=== PATIENT | male | born 1945 | race Caucasian/White ===

== ENCOUNTER 2017-03-22 01:34 | Inpatient (IN) | payer MEDICARE, OTHER ==
[2017-03-22] VITALS (25 sets, daily range): BP systolic 122–149; BP diastolic 56–91; PULSE 62–79; RESP 16–22; TEMP 97.3–99.7; O2SAT 68–97
[~2017-03-22] VITALS: Ht 180.3 cm; Wt 102.7 kg
[~2017-03-22 01:34] MED LIST: ADVI200C9 PO; HYDR-3533 PO
[2017-03-22] MEDS ORDERED: DEXAMETHASONE SOD PHOS 4 MG/ML VIAL IV PUSH ONE (02:15)
[2017-03-22] MEDS ORDERED: CLINDAMYCIN INJ 600 MG in SODIUM CHLORIDE 0.9% INJ 100 ML IV ONE (02:15)
[2017-03-22] MEDS ORDERED: CLINDAMYCIN INJ 600 MG in SODIUM CHLORIDE 0.9% INJ 46 ML IV ONE (02:30)
--- NOTE | 2017-03-22 02:33 | RADRPT ---
EXAM DATE/TIME: 03/22/2017 02:10 [facility] COMPARISON: No previous studies available for comparison. INDICATIONS : Sore throat and cough. MEDICAL HISTORY : None. SURGICAL HISTORY : None. ENCOUNTER: Initial ACUITY: 2 days PAIN SCORE: 5/10 LOCATION: Bilateral neck. FINDINGS: Two view examination of the soft tissues of the neck demonstrates the hypopharyngeal airway to have a grossly normal configuration. The trachea is midline. No radiopaque foreign bodies are seen. CONCLUSION: Normal examination. Josias Bradford MD on March 22, 2017 at 2:31 Board Certified Radiologist. This report was verified electronically.
[2017-03-22 03:12] LABS: AUTOMATED NEUTROPHIL # 11.5 TH/MM3 (1.8-7.7); BASOPHIL # 0.1 TH/MM3 (0-0.2); BASOPHIL % 0.4 % (0.0-2.0); EOSINOPHIL # 0.1 TH/MM3 (0-0.4); EOSINOPHIL % 0.6 % (0.0-4.0); HEMATOCRIT 47.1 % (39.0-51.0); LYMPH % 16.6 % (9.0-44.0); LYMPHOCYTE # 2.6 TH/MM3 (1.0-4.8); MEAN CELL VOLUME 90.7 FL (80.0-100.0); MEAN CORPUSCULAR HEMOGLOBIN 30.5 PG (27.0-34.0); MEAN CORPUSCULAR HGB CONC 33.7 % (32.0-36.0); MONO % 8.5 % (0.0-8.0); NEUT % 73.9 % (16.0-70.0); PLATELET COUNT 212 TH/MM3 (150-450); RED BLOOD COUNT 5.19 MIL/MM3 (4.50-5.90); RED CELL DISTRIBUTION WIDTH 12.5 % (11.6-17.2); WHITE BLOOD COUNT 15.6 TH/MM3 (4.0-11.0)
[2017-03-22 03:26] LABS: HEMO FLAGS DIFF FINAL
[2017-03-22] MEDS ORDERED: RESP: IPRATROPIUM 0.5 MG/2.5 ML NEB NEB ONE (03:30)
[2017-03-22] MEDS ORDERED: diphenhydrAMINE HCL 50 MG/ML VIAL IV PUSH ONE (03:30)
[2017-03-22 03:36] LABS: CHLORIDE 102 MEQ/L (98-107); POTASSIUM 4.3 MEQ/L (3.5-5.1); SODIUM (NA) 135 MEQ/L (136-145)
[2017-03-22 03:40] LABS: ANION GAP 11 MEQ/L (5-15); BICARBONATE 22.2 MEQ/L (21.0-32.0); BLOOD UREA NITROGEN 14 MG/DL (7-18)
[2017-03-22 03:43] LABS: ALT (GPT) 29 U/L (12-78); AST (GOT) 21 U/L (15-37); GLOMERULAR FILTRATION RATE 84 ML/MIN (>89)
--- NOTE | 2017-03-22 03:44 | PD ---
HPI Chief Complaint: ENT Complaint Time Seen by Provider: 01:56 Travel History International Travel<30 days: No Contact w/Intl Traveler<30days: No Traveled to known affect area: No History of Present Illness HPI Patient is a 71-year-old male who is coming in saying that for the last few days he's had a severe sore throat . Tonight it started to get to the point where he felt he could not lie down without his throat closing. As if he couldn 't breathe. He's had congestion and upper respiratory like symptoms now progressively worse . He did not take anything to help with the pain or the sensation in his throat. He has no past medical history . He has no diabetes he said he doesn't even ever take even a pill. In the ER his voice sounds slightly hoarse otherwise he does not seem to be in respiratory distress. He is not drooling. He can handle his own secretions. Just the mild hoarseness to his voice. He has not seen another doctor for this complaint PFSH Past Medical History Diminished Hearing: No Past Surgical History Other Surgery: Yes (left mastoid removal) Social History Alcohol Use: Yes (beer couple times week) Tobacco Use: Yes (cigars) Substance Use: No Allergies-Medications (Allergen,Severity, Reaction): Coded Allergies: No Known Allergies (Unverified Allergy, Unknown, 03/22/17) Reported Meds & Prescriptions Reported Meds & Active Scripts Active Review of Systems Except as stated in HPI: all other systems reviewed are Neg HENT: Positive: Sore Throat, Other (feels as if his throat is closing made worse by lying flat voice hoarseness) Physical Exam Narrative GENERAL: non toxic not in distress but haorseness to voice noted SKIN: Warm and dry. HEAD: Atraumatic. Normocephalic. EYES: Pupils equal and round. No scleral icterus. No injection or drainage. ENT: No nasal bleeding or discharge. Mucous membranes pink and moist. NECK: Trachea midline. No JVD. Auscultation of nape of neck there is no stridor auscultated CARDIOVASCULAR: Regular rate and rhythm. RESPIRATORY: No accessory muscle use. Clear to auscultation. Breath sounds equal bilaterally. Lungs are clear to auscultation in all suárez upper and anterior as well as posterior upper no stridor auscultated GASTROINTESTINAL: Abdomen soft, non-tender, nondistended. Hepatic and splenic margins not palpable. MUSCULOSKELETAL: Extremities without clubbing, cyanosis, or edema. No obvious deformities. NEUROLOGICAL: Awake and alert. No obvious cranial nerve deficits. Motor grossly within normal limits. Five out of 5 muscle strength in the arms and legs. Normal speech. PSYCHIATRIC: Appropriate mood and affect; insight and judgment normal. Data Data Last Documented VS Vital Signs Date Time Temp Pulse Resp B/P (MAP) Pulse Ox O2 Delivery O2 Flow Rate FiO2 03/22/17 04:57 98.2 67 20 140/81 (100) 97 03/22/17 04:00 Room Air Orders Orders Dexamethasone Inj (Decadron Inj) (03/22/17 02:15) Clindamycin Inj (Cleocin Inj) (03/22/17 02:15) Clindamycin Inj (Cleocin Inj) (03/22/17 02:30) Soft Tissue Neck (03/22/17 ) Group A Rapid Strep Screen (03/22/17 02:34) Complete Blood Count With Diff (03/22/17 02:44) Comprehensive Metabolic Panel (03/22/17 02:44) Ct Soft Tiss Neck W Iv Cont (03/22/17 ) Ipratropium Neb (Atrovent Neb) (03/22/17 03:30) Diphenhydramine Inj (Benadryl Inj) (03/22/17 03:30) Strep Culture (Group A) (03/22/17 02:45) Iohexol 350 Inj (Omnipaque 350 Inj) (03/22/17 04:18) Dext 5%-Nacl 0.45% 1000 Ml Inj (D5w-1/2 (03/22/17 05:00) Admit To Inpatient (03/22/17 ) Vital Signs (Adult) Q4H (03/22/17 05:01) Activity Oob Ad Lo (03/22/17 05:01) Bedside Glucose ANGELITA.CSUGAR (03/22/17 05:01) Diet Clear Liquid (03/22/17 Breakfast) Sodium Chloride 0.9% Flush (Ns Flush) (03/22/17 05:15) Sodium Chloride 0.9% Flush (Ns Flush) (03/22/17 09:00) Acetaminophen (Tylenol) (03/22/17 05:15) Ondansetron Inj (Zofran Inj) (03/22/17 05:15) Basic Metabolic Panel (Bmp) (03/23/17 06:00) Complete Blood Count With Diff (03/23/17 06:00) Scd Bilateral/Knee High ANGELITA.BID (03/22/17 05:01) Naloxone Inj (Narcan Inj) (03/22/17 05:15) Docusate Sodium-Senna (Delfina-Colace) (03/22/17 09:00) Magnesium Hydroxide Liq (Milk Of Magnesi (03/22/17 05:15) Sennosides (Senokot) (03/22/17 05:15) Bisacodyl Supp (Dulcolax Supp) (03/22/17 05:15) Lactulose Liq (Lactulose Liq) (03/22/17 05:15) Inpatient Certification (03/22/17 ) Consult Ent (03/22/17 ) Dexamethasone Inj (Decadron Inj) (03/22/17 08:00) Labs Laboratory Tests Test 03/22/17 02:45 03/22/17 03:20 White Blood Count 15.6 TH/MM3 Red Blood Count 5.19 MIL/MM3 Hemoglobin 15.9 GM/DL Hematocrit 47.1 % Mean Corpuscular Volume 90.7 FL Mean Corpuscular Hemoglobin 30.5 PG Mean Corpuscular Hemoglobin Concent 33.7 % Red Cell Distribution Width 12.5 % Platelet Count 212 TH/MM3 Mean Platelet Volume 9.3 FL Neutrophils (%) (Auto) 73.9 % Lymphocytes (%) (Auto) 16.6 % Monocytes (%) (Auto) 8.5 % Eosinophils (%) (Auto) 0.6 % Basophils (%) (Auto) 0.4 % Neutrophils # (Auto) 11.5 TH/MM3 Lymphocytes # (Auto) 2.6 TH/MM3 Monocytes # (Auto) 1.3 TH/MM3 Eosinophils # (Auto) 0.1 TH/MM3 Basophils # (Auto) 0.1 TH/MM3 CBC Comment DIFF FINAL Differential Comment Blood Urea Nitrogen 14 MG/DL Creatinine 0.90 MG/DL Random Glucose 121 MG/DL Total Protein 7.4 GM/DL Albumin 3.7 GM/DL Calcium Level 8.1 MG/DL Alkaline Phosphatase 51 U/L Aspartate Amino Transf (AST/SGOT) 21 U/L Alanine Aminotransferase (ALT/SGPT) 29 U/L Total Bilirubin 1.1 MG/DL Sodium Level 135 MEQ/L Potassium Level 4.3 MEQ/L Chloride Level 102 MEQ/L Carbon Dioxide Level 22.2 MEQ/L Anion Gap 11 MEQ/L Estimat Glomerular Filtration Rate 84 ML/MIN MDM Medical Decision Making Medical Screen Exam Complete: Yes Emergency Medical Condition: Yes Differential Diagnosis Strep pharyngitis versus bacterial tracheitis versus epiglottitis versus thrush or candidal pharyngitis versus foreign body Narrative Course Patient has a hoarse throat and difficulty breathing. CAT scan shows there is some swelling to the aryepiglottic fold. Decadron clindamycin Atrovent neb given with moderate improvement Benadryl IV given moderate improvement needs to be admitted for close observation of his airway I transfer him to the intermediate ICU at the [facility] Narrative Critical care time spent Reassessing his airway giving him medications to prevent any occlusion of his airway. Treatment included clindamycin. Decadron. Benadryl. Atrovent. Reassessing airway over 2 hours. Reviewing his airway CAT scan ordered and reviewed. . Admit to the ICU intermediate step down at the [facility] in [facility]. Critical care care time is 90 minutes Diagnosis Primary Impression: Throat swelling Admitting Information Admitting Physician Requests: Rory Keith MD Mar 22, 2017 03:44
[2017-03-22 03:45] LABS: TOTAL BILIRUBIN ADULT 1.1 MG/DL (0.2-1.0)
[2017-03-22 03:46] LABS: ALKALINE PHOSPHATASE 51 U/L (45-117)
[2017-03-22] MEDS ORDERED: IOHEXOL 350 MG/ML 10 ML VIAL (for RAD DIAG) IVCONTRAST ONE (04:18)
--- NOTE | 2017-03-22 04:26 | RADRPT ---
EXAM DATE/TIME: 03/22/2017 04:01 [facility] COMPARISON: No previous studies available for comparison. INDICATIONS : Neck pain. Swollen throat. IV CONTRAST: 100 cc Omnipaque 350 (iohexol) IV RADIATION DOSE: 15.16 CTDIvol (mGy) MEDICAL HISTORY : None SURGICAL HISTORY : left mastoid removed. ENCOUNTER: Initial ACUITY: 2 days PAIN SCALE: 8/10 LOCATION: Bilateral neck TECHNIQUE: Volumetric scanning of the neck was performed. Using automated exposure control and adjustment of th e mA and/or kV according to patient size, radiation dose was kept as low as reasonably achievable to obtain optimal diagnostic quality images. DICOM format image data is available electronically for r eview and comparison. FINDINGS: NASOPHARYNX: The nasopharyngeal airway has a normal configuration. No mucosal thickening or mass is seen. OROPHARYNX: At the base of the tongue there is also a rounded hypodense structure measuring 1.4 x 1.2 cm across.. The tonsillar pillars are intact. The prevertebral soft tissues are not thickened. LARYNX: The supraglottic, glottic, and infraglottic structures are intact. The left-sided aryepiglottic fold is thicker than the right. Non-emergent ENT referral is recommended PARAPHARYNGEAL: The parapharyngeal space is intact. SALIVARY GLANDS: The parotid and submandibular glands are intact. LYMPH NODES: No enlarged or necrotic-appearing nodes. Numerous small reactive lymph nodes are noted bilaterally THYROID: Homogeneous enhancement without evidence of nodule. BONES: Unremarkable. CONCLUSION: Definite thickening of the left aryepiglottic fold compared to the right. Questionable hypodense mass in the base of the tongue just above the hyoid bone. ENT referral with direct endoscopy is recommend ed on a nonemergent basis. Josias Bradford MD on March 22, 2017 at 4:22 Board Certified Radiologist. This report was verified electronically.
[2017-03-22] MEDS: DEXT 5%-NACL 0.45% 1000 ML INJ 1,000 ML IV SCH ×2 (05:11→16:55)
[2017-03-22] MEDS ORDERED: NALOXONE HCL 0.4 MG/ML AMP IV PUSH PRN (05:15)
[2017-03-22] MEDS ORDERED: BISACODYL 10 MG SUPP RECTAL PRN (05:15)
[2017-03-22] MEDS ORDERED: ONDANSETRON HCL 4 MG/2 ML VIAL IVP PRN (05:15)
[2017-03-22] MEDS ORDERED: LACTULOSE SYRUP 20 GM/30 ML CUP PO PRN (05:15)
[2017-03-22] MEDS ORDERED: SODIUM CHLORIDE 0.9% FLUSH 10 ML FLUSH IV FLUSH PRN (05:15)
[2017-03-22] MEDS ORDERED: SENNOSIDES 8.6 MG TAB PO PRN (05:15)
[2017-03-22] MEDS ORDERED: ACETAMINOPHEN 325 MG TAB PO PRN (05:15)
[2017-03-22] MEDS ORDERED: MAGNESIUM HYDROXIDE SUSP 30 ML CUP PO PRN (05:15)
[2017-03-22] MEDS: DEXAMETHASONE SOD PHOS 4 MG/ML VIAL IV PUSH SCH ×3 (08:47→23:49)
[2017-03-22] MEDS: SODIUM CHLORIDE 0.9% FLUSH 10 ML FLUSH IV FLUSH SCH ×2 (08:47→21:00)
[2017-03-22] MEDS: DOCUSATE SODIUM 50 MG/SENNA 8.6 MG TAB PO SCH ×2 (08:47→22:16)
--- NOTE | 2017-03-22 11:37 | PD.CONS ---
History of Present Illness Service ENT Consult Requested By ED Reason for Consult Throat pain. Primary Care Physician Usman Zapata MD Diagnoses: History of Present Illness 71 year old male, previous good health, sevral days sore throat. Developed hoarseness, upper airway tightness, odynophagia. Presented to ED with 15 K white count. Admitted on steroids and antibiotics. CT suggests possible inflammatory mass base of tongue and supraglottis. Review of Systems Ears, nose, mouth, throat: COMPLAINS OF: Throat pain, Hoarseness, Odynophagia, DENIES: Nasal discharge, Oral lesions Past Family Social History Allergies: Coded Allergies: No Known Allergies (Unverified Allergy, Unknown, 03/22/17) Past Medical History Non-contributory for ENT. Physical Exam Vital Signs Vital Signs Date Time Temp Pulse Resp B/P (MAP) Pulse Ox O2 Delivery O2 Flow Rate FiO2 03/22/17 09:00 66 03/22/17 08:00 68 03/22/17 07:00 98.7 68 20 03/22/17 07:00 68 03/22/17 06:45 67 03/22/17 06:44 98.0 67 18 149/87 (107) 95 03/22/17 06:01 67 20 133/89 (104) 97 03/22/17 04:57 98.2 67 20 140/81 (100) 97 03/22/17 04:00 70 20 134/80 (98) 94 Room Air 03/22/17 03:16 72 20 145/84 (104) 93 03/22/17 02:09 73 20 03/22/17 02:05 99.7 71 20 146/86 (106) 92 03/22/17 01:38 98.5 79 22 139/91 (107) 97 Physical Exam GENERAL: This is a well-nourished, well-developed patient, in no apparent distress. SKIN: No rashes, ecchymoses or lesions. Cool and dry. HEAD: Atraumatic. Normocephalic. No temporal or scalp tenderness. EYES: Pupils equal round and reactive. Extraocular motions intact. No scleral icterus. No injection or drainage. ENT: Nose without bleeding, purulent drainage or septal hematoma. Throat without erythema, tonsillar hypertrophy or exudate. Uvula midline. Airway patent. NECK: Trachea midline. No JVD or lymphadenopathy. Supple, nontender, no meningeal signs. Fiberoptic laryngoscopy, trans-oral: no base of tongue lesion seen. Very mild laryngeal edema. NEUROLOGICAL: Awake and alert. Normal speech. Laboratory Laboratory Tests Test 03/22/17 02:45 03/22/17 03:20 White Blood Count 15.6 Red Blood Count 5.19 Hemoglobin 15.9 Hematocrit 47.1 Mean Corpuscular Volume 90.7 Mean Corpuscular Hemoglobin 30.5 Mean Corpuscular Hemoglobin Concent 33.7 Red Cell Distribution Width 12.5 Platelet Count 212 Mean Platelet Volume 9.3 Neutrophils (%) (Auto) 73.9 Lymphocytes (%) (Auto) 16.6 Monocytes (%) (Auto) 8.5 Eosinophils (%) (Auto) 0.6 Basophils (%) (Auto) 0.4 Neutrophils # (Auto) 11.5 Lymphocytes # (Auto) 2.6 Monocytes # (Auto) 1.3 Eosinophils # (Auto) 0.1 Basophils # (Auto) 0.1 CBC Comment DIFF FINAL Differential Comment Blood Urea Nitrogen 14 Creatinine 0.90 Random Glucose 121 Total Protein 7.4 Albumin 3.7 Calcium Level 8.1 Alkaline Phosphatase 51 Aspartate Amino Transf (AST/SGOT) 21 Alanine Aminotransferase (ALT/SGPT) 29 Total Bilirubin 1.1 Sodium Level 135 Potassium Level 4.3 Chloride Level 102 Carbon Dioxide Level 22.2 Anion Gap 11 Estimat Glomerular Filtration Rate 84 Date/Time Source Procedure Growth Status 03/22/17 02:45 Throat Group A Streptococcus Screen Pending Received Result Diagram: 03/22/17 0245 03/22/17 0320 Assessment and Plan Assessment and Plan 71 year old man was clinically well. Several days sore throat with elevated WBC. Most consistent with supraglottitis and lingual tonsillitis. Maintain IV Clindamycin and Decadron today. If improves D/C home to office follow up. Will re-check in the a.m. OK to eat. Barrington Pruitt MD Mar 22, 2017 11:37
--- NOTE | 2017-03-22 12:32 | HHI.HP ---
[facility] Usman Zapata MD Admission Diagnosis swollen throat aryepiglottic fold Diagnoses: Chief Complaint: Short of breath with subjective fevers and chills Travel History International Travel<30 Days: No Contact w/Intl Traveler <30 Da: No Traveled to Known Affected Are: No History of Present Illness This patient 71-year-old gentleman who was out playing golf yesterday and noted that he increase and he felt tightness in his throat. The tightness was so severe overnight that he drove himself to the emergency room. In the emergency room did have some imaging which showed epiglottal thickening and a density at the base of the tongue. Patient also had a white cell count and some increased hoarseness. He reports being exposed by close family member who had a viral syndrome with cough and he thought it was bronchitis. He himself reports subjective fevers and chills. He is admitted to the hospital for further evaluation and treatment. He was started on IV antibiotics as well as IV steroids and has felt better. Review of Systems Constitutional: COMPLAINS OF: Fatigue, Chills, Night Sweats Endocrine: DENIES: Heat/cold intolerance, Polydipsia, Polyuria, Polyphagia Ears, nose, mouth, throat: DENIES: Tinnitus, Hearing loss, Vertigo, Nasal discharge, Oral lesions, Throat pain, Hoarseness, Ear Pain, Running Nose, Epistaxis, Sinus Pain, Toothache, Odynophagia Respiratory: DENIES: Apneas, Cough, Snoring, Wheezing, Hemoptysis, Sputum production, Shortness of breath Cardiovascular: DENIES: Chest pain, Palpitations, Syncope, Dyspnea on Exertion , PND, Lower Extremity Edema, Orthopnea, Claudication Gastrointestinal: DENIES: Abdominal pain, Black stools, Bloody stools, Constipation, Diarrhea, Nausea, Vomiting, Difficulty Swallowing, Anorexia Genitourinary: DENIES: Sexual dysfunction, Urinary frequency, Urinary incontinence, Urgency, Hematuria, Dysuria, Nocturia, Penile Discharge, Testicular Pain, Testicular Swelling Musculoskeletal: DENIES: Joint pain, Muscle aches, Stiffness, Joint Swelling, Back pain, Neck pain Integumentary: DENIES: Abnormal pigmentation, Nail changes, Pruritus, Rash Hematologic/lymphatic: DENIES: Bruising, Lymphadenopathy Immunologic/allergic: DENIES: Eczema, Urticaria Neurologic: DENIES: Abnormal gait, Headache, Localized weakness, Paresthesias, Seizures, Speech Problems, Tremor, Poor Balance Psychiatric: DENIES: Anxiety, Confusion, Mood changes, Depression, Hallucinations, Agitation, Suicidal Ideation, Homicidal Ideation, Delusions Except as stated in HPI: all other systems reviewed are Neg Past Family Social History Past Medical History Denies Past Surgical History right knee Multiple colon polypectomies Reported Medications None Allergies: Coded Allergies: No Known Allergies (Unverified Allergy, Unknown, 03/22/17) Active Ordered Medications Reviewed in the EMR Family History Mother from esophageal cancer at 83, father at 76 from a ruptured abdominal aneurysm Social History Exposed to viral syndrome with family member in close quarters Tobacco for 10 years and quit in August 2016 Alcohol daily Plays golf daily Physical Exam Vital Signs Vital Signs Date Time Temp Pulse Resp B/P (MAP) Pulse Ox O2 Delivery O2 Flow Rate FiO2 03/22/17 09:00 66 03/22/17 08:00 68 03/22/17 07:00 98.7 68 20 03/22/17 07:00 68 03/22/17 06:45 67 03/22/17 06:44 98.0 67 18 149/87 (107) 95 03/22/17 06:01 67 20 133/89 (104) 97 03/22/17 04:57 98.2 67 20 140/81 (100) 97 03/22/17 04:00 70 20 134/80 (98) 94 Room Air 03/22/17 03:16 72 20 145/84 (104) 93 03/22/17 02:09 73 20 03/22/17 02:05 99.7 71 20 146/86 (106) 92 03/22/17 01:38 98.5 79 22 139/91 (107) 97 Physical Exam GENERAL: This is a well-nourished, well-developed patient, in no apparent distress. SKIN: No rashes, ecchymoses or lesions. Cool and dry. HEAD: Atraumatic. Normocephalic. No temporal or scalp tenderness. EYES: Pupils equal round and reactive. Extraocular motions intact. No scleral icterus. No injection or drainage. ENT: Nose without bleeding, purulent drainage or septal hematoma. Throat without erythema, tonsillar hypertrophy or exudate. Uvula midline. Airway patent. NECK: Trachea midline. No JVD or lymphadenopathy. Supple, nontender, no meningeal signs. CARDIOVASCULAR: Regular rate and rhythm without murmurs, gallops, or rubs. RESPIRATORY: Clear to auscultation. Breath sounds equal bilaterally. No wheezes , rales, or rhonchi. GASTROINTESTINAL: Abdomen soft, non-tender, nondistended. No hepato-splenomegaly , or palpable masses. No guarding. MUSCULOSKELETAL: Extremities without clubbing, cyanosis, or edema. No joint tenderness, effusion, or edema noted. No calf tenderness. Negative Homans sign bilaterally. NEUROLOGICAL: Awake and alert. Cranial nerves II through XII intact. Motor and sensory grossly within normal limits. Five out of 5 muscle strength in all muscle groups. Normal speech. Laboratory Laboratory Tests Test 03/22/17 02:45 03/22/17 03:20 White Blood Count 15.6 Red Blood Count 5.19 Hemoglobin 15.9 Hematocrit 47.1 Mean Corpuscular Volume 90.7 Mean Corpuscular Hemoglobin 30.5 Mean Corpuscular Hemoglobin Concent 33.7 Red Cell Distribution Width 12.5 Platelet Count 212 Mean Platelet Volume 9.3 Neutrophils (%) (Auto) 73.9 Lymphocytes (%) (Auto) 16.6 Monocytes (%) (Auto) 8.5 Eosinophils (%) (Auto) 0.6 Basophils (%) (Auto) 0.4 Neutrophils # (Auto) 11.5 Lymphocytes # (Auto) 2.6 Monocytes # (Auto) 1.3 Eosinophils # (Auto) 0.1 Basophils # (Auto) 0.1 CBC Comment DIFF FINAL Differential Comment Blood Urea Nitrogen 14 Creatinine 0.90 Random Glucose 121 Total Protein 7.4 Albumin 3.7 Calcium Level 8.1 Alkaline Phosphatase 51 Aspartate Amino Transf (AST/SGOT) 21 Alanine Aminotransferase (ALT/SGPT) 29 Total Bilirubin 1.1 Sodium Level 135 Potassium Level 4.3 Chloride Level 102 Carbon Dioxide Level 22.2 Anion Gap 11 Estimat Glomerular Filtration Rate 84 Date/Time Source Procedure Growth Status 03/22/17 02:45 Throat Group A Streptococcus Screen Pending Received Result Diagram: 03/22/17 0245 03/22/17 0320 Imaging Last Impressions Soft Tissue Neck X-Ray 03/22/17 0000 Signed Impressions: Service Date/Time: Wednesday, March 22, 2017 02:10 - CONCLUSION: Normal examination. Josias Bradford MD Neck CT 03/22/17 0000 Signed Impressions: Service Date/Time: Wednesday, March 22, 2017 04:01 - CONCLUSION: Definite thickening of the left aryepiglottic fold compared to the right. Questionable hypodense mass in the base of the tongue just above the hyoid bone. ENT referral with direct endoscopy is recommended on a nonemergent basis. MD Dinorah Fatima VTE Risk Assessment Caprini VTE Risk Assessment: Mod/High Risk (score >= 2) Caprini Risk Assessment Model Point Value = 1 Point Value = 2 Point Value = 3 Point Value = 5 Age 41-60 Minor surgery BMI > 25 kg/m2 Swollen legs Varicose veins or History of unexplained or recurrent spontaneous Oral contraceptives or hormone replacement Sepsis (< 1 month) Serious lung disease, including pneumonia (< 1 month) Abnormal pulmonary function Acute myocardial infarction Congestive heart failure (< 1 month) History of inflammatory bowel disease Medical patient at bed rest Age 61-74 Arthroscopic surgery Major open surgery (> 45 min) Laparoscopic surgery (> 45 min) Malignancy Confined to bed (> 72 hours) Immobilizing plaster cast Central venous access Age >= 75 History of VTE Family history of VTE Factor V Leiden Prothrombin [id number] Lupus anticoagulant Anticardiolipin antibodies Elevated serum homocysteine Heparin-induced thrombocytopenia Other congenital or acquired thrombophilia Stroke (< 1 month) Elective arthroplasty Hip, pelvis, or leg fracture Acute spinal cord injury (< 1 month) Prophylaxis Regimen Total Risk Factor Score Risk Level Prophylaxis Regimen 0-1 Low Early ambulation 2 Moderate Order ONE of the following: *Sequential Compression Device (SCD) *Heparin 5000 units SQ BID 3-4 Higher Order ONE of the following medications: *Heparin 5000 units SQ TID *Enoxaparin/Lovenox 40 mg SQ daily (WT < 150 kg, CrCl > 30 mL/min) *Enoxaparin/Lovenox 30 mg SQ daily (WT < 150 kg, CrCl > 10-29 mL/min) *Enoxaparin/Lovenox 30 mg SQ BID (WT < 150 kg, CrCl > 30 mL/min) AND/OR *Sequential Compression Device (SCD) 5 or more Highest Order ONE of the following medications: *Heparin 5000 units SQ TID (Preferred with Epidurals) *Enoxaparin/Lovenox 40 mg SQ daily (WT < 150 kg, CrCl > 30 mL/min) *Enoxaparin/Lovenox 30 mg SQ daily (WT < 150 kg, CrCl > 10-29 mL/min) *Enoxaparin/Lovenox 30 mg SQ BID (WT < 150 kg, CrCl > 30 mL/min) AND *Sequential Compression Device (SCD) Assessment and Plan Problem List: (1) Throat swelling ICD Code: R22.1 - Localized swelling, mass and lump, neck Status: Acute Plan: Likely infectious and inflammatory in nature We'll continue IV antibiotics and IV steroids and continue supportive care Advance diet ENT eval appreciated Code Status Full code Physician Certification 2 Midnight Certification Type: Admission for Inpatient Services Order for Inpatient Services The services are ordered in accordance with Medicare regulations or non- Medicare payer requirements, as applicable. In the case of services not specified as inpatient-only, they are appropriately provided as inpatient services in accordance with the 2-midnight benchmark. Estimated LOS (days): 2 2 days is the estimated time the patient will need to remain in the hospital, assuming treatment plan goals are met and no additional complications. Post-Hospital Plan: Alecia Padron MD Mar 22, 2017 12:32
[2017-03-23] VITALS (13 sets, daily range): BP systolic 104–144; BP diastolic 71–90; PULSE 50–72; RESP 16–20; TEMP 97.9–98; O2SAT 97–100
--- NOTE | 2017-03-23 06:42 | HHI.PR ---
Subjective Remarks Feels much better. Pain nearly resolved. Objective Oral cavity clear. No adenopathy. Vital Signs Date Time Temp Pulse Resp B/P (MAP) Pulse Ox O2 Delivery O2 Flow Rate FiO2 03/23/17 06:00 59 03/23/17 05:00 72 03/23/17 04:00 59 03/23/17 03:00 98.0 65 16 144/71 (95) 97 03/23/17 03:00 50 03/23/17 02:00 54 03/23/17 01:00 60 03/22/17 23:00 97.7 62 16 122/75 (91) 93 03/22/17 23:00 66 03/22/17 22:00 76 03/22/17 21:00 66 03/22/17 20:00 66 03/22/17 19:00 97.3 70 18 131/56 (81) 93 03/22/17 19:00 64 03/22/17 18:00 70 03/22/17 17:00 66 03/22/17 16:00 68 03/22/17 15:00 65 03/22/17 15:00 98.0 65 20 128/83 (98) 94 03/22/17 14:00 70 03/22/17 13:00 68 03/22/17 12:00 69 03/22/17 11:00 98.9 66 20 146/91 (109) 95 03/22/17 11:00 66 03/22/17 10:00 62 03/22/17 09:00 66 03/22/17 08:00 68 03/22/17 07:00 98.7 68 20 03/22/17 07:00 68 03/22/17 06:45 67 03/22/17 06:44 98.0 67 18 149/87 (107) 95 I/O 03/22/17 03/22/17 03/22/17 03/23/17 03/23/17 03/23/17 07:00 15:00 23:00 07:00 15:00 23:00 Intake Total 1574 ml 1480 ml Output Total 800 ml 350 ml Balance 774 ml 1130 ml Intake Oral 800 ml 480 ml IV Total 774 ml 1000 ml Output Urine Total 800 ml 350 ml # Voids 1 Result Diagram: 03/22/17 0245 03/22/17 0320 Assessment and Plan Assessment and Plan 71 year old man most consistent with lingual tonsillitis. Much improved. Suggest discharge home on a MEDROL DOSE PACK and CLINDAMYCIN 300mg TID 1 week. Follow up with Dr Pruitt as outpatient in 2 to 3 weeks. Barrington Pruitt MD Mar 23, 2017 06:42
[2017-03-23 07:05] LABS: AUTOMATED NEUTROPHIL # 15.8 TH/MM3 (1.8-7.7); HEMATOCRIT 44.4 % (39.0-51.0); HEMO FLAGS DIFF FINAL; LYMPH % 6.5 % (9.0-44.0); LYMPHOCYTE # 1.1 TH/MM3 (1.0-4.8); MEAN CELL VOLUME 92.3 FL (80.0-100.0); MEAN CORPUSCULAR HEMOGLOBIN 32.1 PG (27.0-34.0); MEAN CORPUSCULAR HGB CONC 34.8 % (32.0-36.0); MONO % 3.7 % (0.0-8.0); NEUT % 89.8 % (16.0-70.0); PLATELET COUNT 206 TH/MM3 (150-450); RED BLOOD COUNT 4.81 MIL/MM3 (4.50-5.90); RED CELL DISTRIBUTION WIDTH 13.3 % (11.6-17.2); WHITE BLOOD COUNT 17.6 TH/MM3 (4.0-11.0)
[2017-03-23 07:36] LABS: BICARBONATE 23.8 MEQ/L (21.0-32.0); POTASSIUM 3.7 MEQ/L (3.5-5.1)
[2017-03-23] MEDS: DEXAMETHASONE SOD PHOS 4 MG/ML VIAL IV PUSH SCH (08:24)
[2017-03-23] MEDS: DOCUSATE SODIUM 50 MG/SENNA 8.6 MG TAB PO SCH (08:24)
[2017-03-23] MEDS: SODIUM CHLORIDE 0.9% FLUSH 10 ML FLUSH IV FLUSH SCH (09:00)
--- NOTE | 2017-03-23 11:24 | HHI.DCPOC ---
Discharge Care Plan Diagnosis: (1) Tonsillitis Goals to Promote Your Health * To prevent worsening of your condition and complications * To maintain your health at the optimal level Directions to Meet Your Goals Take your medications as prescribed Follow your dietary instruction Follow activity as directed Keep your appointments as scheduled Take your immunizations and boosters as scheduled If your symptoms worsen call your PCP, if no PCP go to Urgent Care Center or Emergency Room Smoking is Dangerous to Your Health. Avoid second hand smoke Call the 24-hour hour crisis hotline for domestic abuse at Alecia Santiago MD Mar 23, 2017 11:24
[2017-03-23] MEDS ORDERED: CLIN300C5 PO (11:25)
[2017-03-23] MEDS ORDERED: MEDR4PAK PO (11:25)
--- NOTE | 2017-03-23 11:27 | HHI.DS ---
will Discharge Summary Admission Date Mar 22, 2017 at 05:05 Discharge Date: Mar 23, 2017 Admitting Diagnosis swollen throat aryepiglottic fold (1) Throat swelling ICD Code: R22.1 - Localized swelling, mass and lump, neck Status: Acute Procedures none Brief History - From Admission This patient 71-year-old gentleman who was out playing golf yesterday and noted that he increase and he felt tightness in his throat. The tightness was so severe overnight that he drove himself to the emergency room. In the emergency room did have some imaging which showed epiglottal thickening and a density at the base of the tongue. Patient also had a white cell count and some increased hoarseness. He reports being exposed by close family member who had a viral syndrome with cough and he thought it was bronchitis. He himself reports subjective fevers and chills. He is admitted to the hospital for further evaluation and treatment. He was started on IV antibiotics as well as IV steroids and has felt better. CBC/BMP: 03/23/17 0557 03/23/17 0557 Significant Findings Laboratory Tests Test 03/22/17 02:45 03/22/17 03:20 03/23/17 05:57 White Blood Count 15.6 TH/MM3 (4.0-11.0) 17.6 TH/MM3 (4.0-11.0) Neutrophils (%) (Auto) 73.9 % (16.0-70.0) 89.8 % (16.0-70.0) Monocytes (%) (Auto) 8.5 % (0.0-8.0) Neutrophils # (Auto) 11.5 TH/MM3 (1.8-7.7) 15.8 TH/MM3 (1.8-7.7) Monocytes # (Auto) 1.3 TH/MM3 (0-0.9) Random Glucose 121 MG/DL (74-106) 153 MG/DL (74-106) Calcium Level 8.1 MG/DL (8.5-10.1) Total Bilirubin 1.1 MG/DL (0.2-1.0) Sodium Level 135 MEQ/L (136-145) Estimat Glomerular Filtration Rate 84 ML/MIN (>89) Lymphocytes (%) (Auto) 6.5 % (9.0-44.0) Imaging Last Impressions Soft Tissue Neck X-Ray 03/22/17 0000 Signed Impressions: Service Date/Time: Wednesday, March 22, 2017 02:10 - CONCLUSION: Normal examination. Josias Bradford MD Neck CT 03/22/17 0000 Signed Impressions: Service Date/Time: Wednesday, March 22, 2017 04:01 - CONCLUSION: Definite thickening of the left aryepiglottic fold compared to the right. Questionable hypodense mass in the base of the tongue just above the hyoid bone. ENT referral with direct endoscopy is recommended on a nonemergent basis. Josias Bradford MD PE at Discharge GENERAL: This is a well-nourished, well-developed patient, in no apparent distress. CARDIOVASCULAR: Regular rate and rhythm without murmurs, gallops, or rubs. RESPIRATORY: Clear to auscultation. Breath sounds equal bilaterally. No wheezes , rales, or rhonchi. GASTROINTESTINAL: Abdomen soft, non-tender, nondistended. Normal active bowel sounds MUSCULOSKELETAL: Extremities without clubbing, cyanosis, or edema. NEURO: Alert & Oriented x4 to person, place, time, situation. Moves all ext x4 Pt update on day of discharge Patient doing well, pain resolved No shortness of breath Hospital Course This patient is a very pleasant and very healthy 71-year-old gentleman who had a sore throat and apparently has severe tonsillitis likely related to recent sick contacts and viral syndrome. Patient has done well with steroids and antibiotics. He seen by ENT specialty team team and recommended for oral steroids if the short course as well as oral antibiotics. Patient is dramatically improved and will be discharged home Pt Condition on Discharge: Good Discharge Disposition: Discharge Home Discharge Time: <= 30 minutes Discharge Instructions DIET: Follow Instructions for: As Tolerated, No Restrictions Activities you can perform: Regular-No Restrictions Follow up Referrals: Ear Nose Throat - 2 Weeks with mirante New Medications: Clindamycin (Clindamycin) 300 Mg Cap 300 MG PO TID for Infection, #21 CAP 0 Refills Methylprednisolone Dosepak (Medrol Dosepak) 4 Mg Dspk 4 MG PO DIRECTED, #1 DSPK 0 Refills Per Pharmacist direction Alecia Santiago MD Mar 23, 2017 11:27
== END 2017-03-23 13:01 | disposition home or self-care (01) | DRG 153 ==
LOC: PHED 01:34 → PHEDA 05:05 → HCIS 06:31
PROVIDERS: ADMIT Hospitalist; ATTEND Hospitalist
DX: J04.30 Supraglottitis, unspecified, without obstruction (principal); F17.290 Nicotine dependence, other tobacco product, uncomplicated; J03.90 Acute tonsillitis, unspecified
CPT/HCPCS: 70360; 70491; 80048; 80053; 85025; 87081; 87880; 94664; 96365; 96366; 96375; 99292; J1100; J1200; J7644; Q9967